=== PATIENT | male | born 1940 | race Caucasian/White ===

== ENCOUNTER 2022-07-28 19:34 | Emergency (ER) | payer MEDICARE, OTHER ==
[~2022-07-28] VITALS: Ht 188 cm; Wt 115.7 kg
[2022-07-28] MEDS ORDERED: ESCITALOPRAM OX20 MG PO (20:00)
[2022-07-28] MEDS ORDERED: METOPROLOL SUCC25 MG PO (20:01)
[2022-07-28] MEDS ORDERED: ATORVASTATIN CA40 MG PO (20:01)
[2022-07-28] MEDS ORDERED: LISINOPRIL-HCT1 EAC2 PO (20:01)
--- NOTE | 2022-07-28 20:37 | EKG ---
[facility] [address] [facility] [place] [address] Signed Normal sinus rhythm Left axis deviation Pulmonary disease pattern Possible Inferior infarct , age undetermined Prolonged QT Abnormal ECG No previous ECGs available Confirmed by LYUBOV VARGAS MD ([id number]) on 07/28/2022 8:37:11 PM Electronically Signed By: LYUBOV VARGAS MD 07/28/222036 PATIENT NAME: DAMIANANTHONY MALATHI Electrocardiogram DATE OF : 40 PHYSICIAN: LYUBOV VARGAS MD REPORT #: [id number] REPORT IS CONFIDENTIAL AND NOT TO BE RELEASED WITHOUT AUTHORIZATION
[2022-07-28] MEDS ORDERED: PROTONIX40 MG PO (22:54)
[2022-07-28] MEDS ORDERED: CARAFATE1 GM PO (22:54)
[2022-07-28] MEDS ORDERED: PERCOCET 5-3251 EACH PO (22:54)
== END 2022-07-28 23:38 | disposition home or self-care (01) ==
LOC: ED 19:34
DX: K29.70 Gastritis, unspecified, without bleeding (principal); I10 Essential (primary) hypertension; I25.2 Old myocardial infarction; Z20.822 Contact with and (suspected) exposure to COVID-19; Z79.899 Other long term (current) drug therapy
CPT/HCPCS: 36415; 71045; 71260; 80053; 83690; 83735; 83880; 84484; 85025; 85379; 85610; 85730; 87502; 93005; 93010; 96375; 99285-25; C9113; C9803; J1170; J2270; Q9967; U0003

== ENCOUNTER 2024-11-14 06:35 | Day surgery (SDC) | payer MEDICARE, OTHER ==
[2024-11-07 15:17] VITALS: BP 126/80
[~2024-11-14] VITALS: Ht 188 cm; Wt 102.3 kg
[~2024-11-14 06:35] MED LIST: ATORVASTATIN CA40 MG PO; BAYER CHEWABLE81 MG PO; CARAFATE1 GM PO; ESCITALOPRAM OX20 MG PO; LACTATED RINGER'S 1,000 ML IV SCH; LISINOPRIL-HCT1 EAC2 PO; LISINOPRIL10 MG PO; METOPROLOL SUCC25 MG PO; OSTERA TABLET1 EACH PO; PERCOCET 5-3251 EACH PO; PROTONIX40 MG PO
[2024-11-14 06:58] VITALS: BP 148/81
[2024-11-14] MEDS ORDERED: HEParin SOD (PORCINE) 5,000 UNIT/ML SDV SUB-Q SCH (07:00)
[2024-11-14] MEDS ORDERED: LISINOPRIL-HCT1 EAC2 PO (07:00)
[2024-11-14] MEDS ORDERED: CEFAZOLIN SODIUM 2 GM/20 ML SYR IV SCH (07:00)
[2024-11-14] MEDS ORDERED: LIDOCAINE HCL 1% 5 ML SDV INJ ONE (07:00)
[2024-11-14] MEDS ORDERED: IBLOOD GLUCOSE TEST STRIP 1 EA TEST VI PRN (07:00)
[2024-11-14] MEDS ORDERED: LIDOCAINE HCL 2% 5 ML SDV ONE (08:06)
[2024-11-14] MEDS ORDERED: propofoL 200 MG/20 ML VIAL ONE (08:06)
--- NOTE | 2024-11-14 09:50 | NUR ---
PT ARRIVES TO DS FROM OR VIA STRETCHER. PT IS A&O AND ASKING APPROPRIATE QUESTIONS AT THIS TIME. PT REPORTS NO PAIN OR NAUSEA. PT TOLERATING SIPS OF WATER WITHOUT DIFFICULTY. PT ON RA W/O2 >90% VIA RA. PT RESPIRATIONS ARE EVEN AND UNLABORED, NO SIGNS OF DISTRESS. CALL LIGHT WITHIN REACH.
[2024-11-14 09:55] VITALS: BP 171/72
[2024-11-14] MEDS ORDERED: NALOXONE HCL 0.4 MG SYR IV PRN (10:00)
[2024-11-14] MEDS ORDERED: PROCHLORPERAZINE EDISYLATE 10 MG/2 ML VIAL IV PRN (10:00)
[2024-11-14] MEDS ORDERED: HYDROmorphone HCL 1 MG/ML SYR IV PRN (10:00)
[2024-11-14] MEDS ORDERED: ondansetron HCL 4 MG/2 ML VIAL IV PRN (10:00)
--- NOTE | 2024-11-14 10:10 | NUR ---
PT ALEKSANDR CALLS AND ASKS FOR UPDATE, LET HER KNOW PT DOING WELL AND WILL BE READY TO DC ONCE DRESSED. SHE IS ON HER WAY. UPDATED PT AND PT BEGINNING TO GET DRESSED, CALL LIGHT WITHIN REACH, SHREYAS AT BEDSIDE FOR ASSISTANCE. PT STATES NO FURTHER NEEDS OR QUESTIONS AT THIS TIME.
--- NOTE | 2024-11-14 10:25 | NUR ---
IN PT ROOM FOR DC EDCUATION. PT STATES NO VERBAL UNDERSTANDING TO DC EDUCATION AT THIS TIME AND NO FURTHER QUESTIONS. PT OFF OF UNIT VIA WC TO PASSENGER SIDE OF VEHICLE. ALL BELONGINGS IN PT POSSESSION AT THIS TIME. PT STATES NO FURTHER NEEDS. ICE PACK AND ICE WATER PROVIDED.
--- NOTE | 2024-11-14 10:49 | OR ---
[facility] [address] [place], [place] [address] Signed DATE OF OPERATION: 11/14/2024 SURGEON: Andrew Hurt MD PREOPERATIVE DIAGNOSIS: Left chest wall lesion (sebaceous cyst), (2.0 x 3.0 cm). POSTOPERATIVE DIAGNOSIS: Left chest wall lesion (sebaceous cyst), (2.0 x 3.0 cm). PROCEDURE: Excision left chest wall lesion/sebaceous cyst (2.5 x 8 cm). ESTIMATED BLOOD LOSS: None. INDICATIONS: Saman is an 84-year-old gentleman, asked to see me for a large skin lesion on his left chest wall. It is just above and somewhat lateral to the nipple areolar complex. It measured about 2.5 x 3 cm in the office. Today, it was 2.0 x 3 cm. He said he has had it for years. The skin starting to break down over top of it. He had been to his primary care provider and was asked to see me as a local general surgeon. He told me he worries because he knows he can get breast cancer. He had been in the office with a family member. On exam, I can see the sebum through the skin. Thankfully, it was not infected. It is a little tender. I explained to Saman and his family member the idea of a sebaceous cyst. He understands this has to completely excised, so the cyst wall was removed, otherwise, it will come back. He also has a long history of alcohol abuse. In fact, he had multiple bruises on his body today, he told me he frequently falls down. He has other major medical issues too including the sleep apnea. I explained him it is probably best to do this in the OR with monitored anesthesia care and local anesthetic. He understands it will be a day surgery. There is risk to the procedure including but not limited to bleeding, infection, scarring, change in contour of the skin as well as recurrent cyst in the same or other locations. He had expressed understanding and wished to proceed. DESCRIPTION OF PROCEDURE: I met with Saman in our preop area. We both agreed on the lesion and we marked it appropriately. After this, we took Saman into the operating room and placed him in the supine semi-recumbent position. He was prepped and draped in the usual sterile fashion. He was given monitored anesthesia care per our nurse automotive metalsmith. We alisa our Electronically Signed By: ANDREW HURT MD 11/14/24 1049 PATIENT NAME: SAMAN SALGADO OPERATIVE REPORT DATE OF : 40 REPORT #: [id number] PHYSICIAN: ANDREW HURT MD PCP: TAVO STEINBERG MD REPORT IS CONFIDENTIAL AND NOT TO BE RELEASED WITHOUT AUTHORIZATION [address] [address] Signed transverse elliptical skin lesion 8 cm in length and a little more than 2 cm wide. We injected local anesthetic in and around and underneath the lesion. We developed the incisions with the help of the 15 blade knife. We then used the cautery to excise the lesion full thickness along with some adipose tissue underneath. We then brought the together with interrupted 3-0 subcuticular Monocryl sutures. The skin edges were reapproximated with running 5-0 fast absorbing plain gut suture. Dry gauze and tape was then applied. Saman was then transferred over to his hospital bed and taken into the recovery room in stable condition. Andrew Hurt MD ALB/MODL /[id number] cc: MD Andrew Martinez MD Copies: TAVO STEINBERG DMD, ANDREW L MD ~ Electronically Signed By: ANDREW HURT MD 11/14/24 1049 PATIENT NAME: SAMAN SALGADO OPERATIVE REPORT DATE OF : 40 REPORT #: [id number] PHYSICIAN: ANDREW HURT MD PCP: TAVO STEINBERG MD REPORT IS CONFIDENTIAL AND NOT TO BE RELEASED WITHOUT AUTHORIZATION
--- NOTE | 2024-11-19 08:18 | PATH ---
[facility] [address] [place], [place] [address] Signed SPECIMEN(S): A LEFT CHEST WALL LESION SPECIMEN SOURCE: A. LEFT CHEST WALL LESION CLINICAL HISTORY: Sebaceous cyst left chest wall. FINAL PATHOLOGIC DIAGNOSIS: Soft tissue, left chest wall, excision: - Epidermal inclusion cyst, ruptured BRP MICROSCOPIC EXAMINATION: Histologic sections of all submitted blocks are examined by light microscopy. These findings, together with the gross examination, support the pathologic diagnosis. GROSS DESCRIPTION: The specimen, labeled and designated "Main, S, " and designated on the requisition "left chest wall lesion, long stitch lateral/short stitch superior/double stitch medial," is received in formalin and consists of 16 gram oriented portion of yellow-martinez fibroadipose tissue that is 6.2 x 3.4 x 2.1 cm and is partially surfaced by a 6.1 x 2.4 cm ellipse of skin. The skin surface is martinez and wrinkled with two defects that measure 0.7 cm and 0.4 cm in greatest dimension. A short suture is present and identifies the superior margin; a long suture identifies the lateral margin; a double stitch identifies the medial margin. The specimen is inked as follows: superior - blue; inferior - green; medial - red; lateral - orange; anterior -skin; and posterior - black. The specimen is serially sectioned from medial to lateral revealing a 3.1 x 1.8 x 1.5 cm cystic structure containing a white-martinez grumous material. This is cystic structure communicates with the previously described defects on the skin surface. Senior Corporate Strategy Manager sections are submitted in (A1-A2). FB (under the direct supervision of a pathologist) The Gross Description was prepared using a voice recognition system. The report was reviewed for accuracy; however, sound-alike word errors, addition and/or deletions may occur. If there is any question about this report, please contact Client Services. PATIENT NAME: ANTHONY SALGADO PATHOLOGY DATE OF : 40 REPORT #: [id number] PHYSICIAN: JOCELYNE PATHOLOGY PCP: TAVO STEINBERG MD REPORT IS CONFIDENTIAL AND NOT TO BE RELEASED WITHOUT AUTHORIZATION [facility] [address] [place], [place] [address] Signed ADDITIONAL NOTES: Immunohistochemical and/or in situ hybridization studies if performed in this case included appropriate positive controls that reacted as expected. This test was developed and its performance characteristics determined by [facility]. It has not been cleared or approved by the U.S. Food and Drug Administration. The FDA has determined that such clearance or approval is not necessary. This test is used for clinical purposes. It should not be regarded as investigational or for research. [facility] is certified under the Clinical Laboratory Improvement Amendments of 1988 (CLIA) as qualified to perform high complexity clinical laboratory testing. PERFORMING LABORATORY: Technical component was performed by [facility], [address] [place] [address] (CLIA# [id number]). Professional interpretation was performed by [facility], [address] [place] [address] (CLIA#: [id number]). Diagnostician: Chilo Glover MD Pathologist Electronically Signed 11/19/2024 Copies: ~ PATIENT NAME: MAINANTHONY PATHOLOGY DATE OF : 40 REPORT #: [id number] PHYSICIAN: JOCELYNE PATHOLOGY PCP: TAVO STEINBERG MD REPORT IS CONFIDENTIAL AND NOT TO BE RELEASED WITHOUT AUTHORIZATION
== END 2024-11-14 10:30 | disposition home or self-care (01) ==
LOC: DS 06:35
PROVIDERS: ATTEND Colon & Rectal Surgery
PROC: 0JB60ZZ Excision of Chest Subcutaneous Tissue and Fascia, Open Approach (ICD-10-PCS; principal; 2024-11-14 09:00)
DX: L72.0 Epidermal cyst (principal); I12.9 Hypertensive chronic kidney disease with stage 1 through stage 4 chronic kidney disease, or unspecified chronic kidney disease; N18.9 Chronic kidney disease, unspecified; I25.2 Old myocardial infarction; G47.33 Obstructive sleep apnea (adult) (pediatric); F32.1 Major depressive disorder, single episode, moderate; E78.2 Mixed hyperlipidemia; F10.10 Alcohol abuse, uncomplicated; E78.5 Hyperlipidemia, unspecified; F17.210 Nicotine dependence, cigarettes, uncomplicated; Z90.49 Acquired absence of other specified parts of digestive tract; Z79.82 Long term (current) use of aspirin; Z79.899 Other long term (current) drug therapy
CPT/HCPCS: 00400; 88304; J0690; J1644; J2003; J2704; J7121